=== PATIENT | female | born 1930 | race African-American/Black ===

== ENCOUNTER → 2018-01-16 | Day surgery (SDC) | payer MEDICARE, MEDICAID ==
[~2018-01-16] MED LIST: LIDOCAINE HCL/EPINEPHRINE 1%-EPI 1:100,000 20 ML VIAL ONE; SODIUM BICARBONATE 4% (2.4MEQ) 5ML VIAL IV ONE
== END | disposition home or self-care (01) ==
LOC: RAD 10:39
PROVIDERS: ATTEND Specialist
DX: C50.912 Malignant neoplasm of unspecified site of left female breast (principal); K21.9 Gastro-esophageal reflux disease without esophagitis; J44.9 Chronic obstructive pulmonary disease, unspecified; E78.5 Hyperlipidemia, unspecified; I10 Essential (primary) hypertension; R55 Syncope and collapse; Z85.41 Personal history of malignant neoplasm of cervix uteri; Z88.2 Allergy status to sulfonamides
CPT/HCPCS: 19083; 88305; J3490

== ENCOUNTER 2019-06-26 16:49 | Inpatient (IN) | payer MEDICARE, OTHER ==
[~2019-06-26] VITALS: Ht 157.5 cm; Wt 66.2 kg
[~2019-06-26 16:49] MED LIST changes: +AMLO10TA80 PO; +ASCO-339 PO; +ASPI-986 PO; +AZOPT BOTHEYE; +CHOL400C8 PO; -LIDOCAINE HCL/EPINEPHRINE 1%-EPI 1:100,000 20 ML VIAL ONE; +LOSA50TA41 PO; +METH50TA5 PO; +MULT-645 PO; -SODIUM BICARBONATE 4% (2.4MEQ) 5ML VIAL IV ONE; +TRAV2.5D BOTHEYE
[2019-06-26] MEDS ORDERED: SODIUM CHLORIDE 0.9% 1,000 ML IV ONE (17:07)
[2019-06-26 17:41] LABS: BASOPHILS % 0.9 % (0.0-2.0); EOSINOPHILS % 1.1 % (0.0-5.0); HEMATOCRIT. 33.4 % (36.0-48.0); HEMOGLOBIN. 10.6 g/dL (12.0-16.0); MEAN CORPUSCULAR HEMOGLOBIN 26.7 pg (28.0-32.0); MEAN CORPUSCULAR VOLUME 84.3 fL (81.0-99.0); MEAN PLATELET VOLUME 7.7 fl (7.4-10.4); MONOCYTES % 10.8 % (2.0-8.0); NEUTROPHILS % 75.2 % (40.0-76.0); PLATELET 226 x1000/uL (130-400); RED BLOOD CELL COUNT 3.96 mill/uL (4.2-5.4); RED CELL DISTRIBUTION WIDTH 19.4 % (11.6-14.6)
[2019-06-26 17:45] LABS: CHLORIDE 107 mEq/L (98-107)
[2019-06-26 17:51] LABS: INR 1.1; PARTIAL THROMBOPLASTIN TIME 29.4 sec (23.4-31.0); PROTHROMBIN TIME 11.4 sec (9.6-11.0)
[2019-06-26] MEDS ORDERED: CEFTRIAXONE 1 G PREMIX 50 ML IV ONE (19:00)
[2019-06-26] MEDS ORDERED: ASPIRIN 81MG TABLET PO ONE (19:00)
[2019-06-26 20:02] LABS: CLARITY URINE CLOUDY (CLEAR); COLOR URINE YELLOW (YELLOW); KETONES URINE NEGATIVE (NEGATIVE); LEUKOCYTE ESTERASE URINE NEGATIVE (NEGATIVE); NITRITE URINE NEGATIVE (NEGATIVE); OCCULT BLOOD URINE 1+ (NEGATIVE); PROTEIN URINE TRACE (NEGATIVE); SPECIFIC GRAVITY URINE 1.013 (1.005-1.030); UROBILINOGEN URINE 0.2 E.U./dL (0.2-1.0)
[2019-06-26] MEDS ORDERED: DOCUSATE SODIUM 100MG CAPSULE PO PRN (20:30)
[2019-06-26] MEDS ORDERED: ONDANSETRON HCL 4MG/2ML INJ IV PRN (20:30)
[2019-06-26 23:30] VITALS: BP 178/87
[2019-06-27] MEDS: SODIUM CHLORIDE 0.9% 1,000 ML IV SCH ×2 (00:18→10:24)
[2019-06-27] MEDS: CLONIDINE 0.1MG TABLET PO PRN (00:18)
[2019-06-27] MEDS ORDERED: LEVO500T89 PO (00:48)
[2019-06-27] MEDS ORDERED: MECL-159 PO (00:48)
[2019-06-27] MEDS ORDERED: BIMA2.5D4 LEFTEYE (00:48)
[2019-06-27] MEDS ORDERED: BRIM10DR2 LEFTEYE (00:48)
[2019-06-27 04:00] VITALS: BP 140/75
[2019-06-27] MEDS: ACETAMINOPHEN 325MG TABLET PO PRN ×2 (04:35→10:24)
[2019-06-27 07:05] LABS: BASOPHILS % 0.6 % (0.0-2.0); EOSINOPHILS % 0.4 % (0.0-5.0); HEMATOCRIT. 31.5 % (36.0-48.0); HEMOGLOBIN. 10.1 g/dL (12.0-16.0); LYMPHOCYTES % 13.9 % (20.0-50.0); MEAN CORPUSCULAR HEMOGLOBIN 26.8 pg (28.0-32.0); MEAN CORPUSCULAR VOLUME 83.7 fL (81.0-99.0); MEAN PLATELET VOLUME 8.3 fl (7.4-10.4); MONOCYTES % 13.7 % (2.0-8.0); NEUTROPHILS % 71.4 % (40.0-76.0); PLATELET 188 x1000/uL (130-400); RED BLOOD CELL COUNT 3.76 mill/uL (4.2-5.4); RED CELL DISTRIBUTION WIDTH 19.7 % (11.6-14.6)
[2019-06-27 07:25] LABS: CHLORIDE 109 mEq/L (98-107)
[2019-06-27 08:00] VITALS: BP 146/75
[2019-06-27] MEDS ORDERED: LORAZEPAM 2MG/ML CPJ IV PRN (10:45)
[2019-06-27 12:00] VITALS: BP 139/64
[2019-06-27] MEDS: AMLODIPINE 10MG TABLET PO SCH (12:42)
[2019-06-27] MEDS: MEGESTROL ACETATE 400 MG/10 ML UDC PO SCH (12:42)
[2019-06-27 16:00] VITALS: BP 123/59
[2019-06-27 20:00] VITALS: BP 132/76
[2019-06-27] MEDS: ENOXAPARIN 30MG/0.3ML SYR SUBCUT SCH (21:13)
[2019-06-27] MEDS: LUMIGAN 0.01% LEFTEYE SCH (21:13)
[2019-06-27] MEDS: COMBIGAN LEFTEYE SCH (21:13)
[2019-06-28] VITALS (7 sets, daily range): BP systolic 134–166; BP diastolic 62–73
[2019-06-28] MEDS: SODIUM CHLORIDE 0.9% 1,000 ML IV SCH ×2 (01:58→14:38)
[2019-06-28] MEDS: ACETAMINOPHEN 325MG TABLET PO PRN (07:33)
[2019-06-28] MEDS ORDERED: ENOXAPARIN 30MG/0.3ML SYR SUBCUT SCH (09:00)
[2019-06-28] MEDS: MEGESTROL ACETATE 400 MG/10 ML UDC PO SCH (09:15)
[2019-06-28] MEDS: AMLODIPINE 10MG TABLET PO SCH (09:16)
[2019-06-28] MEDS: COMBIGAN LEFTEYE SCH ×2 (09:16→20:22)
[2019-06-28] MEDS: CLONIDINE 0.1MG TABLET PO PRN (09:19)
[2019-06-28] MEDS: ENOXAPARIN 30MG/0.3ML SYR SUBCUT SCH (20:22)
[2019-06-28] MEDS: LUMIGAN 0.01% LEFTEYE SCH (20:22)
[2019-06-29] VITALS: BP 143/70
[2019-06-29 04:00] VITALS: BP 164/67
[2019-06-29] MEDS: SODIUM CHLORIDE 0.9% 1,000 ML IV SCH ×2 (04:18→19:04)
[2019-06-29 06:08] LABS: BASOPHILS % 0.9 % (0.0-2.0); EOSINOPHILS % 1.4 % (0.0-5.0); HEMATOCRIT. 29.9 % (36.0-48.0); HEMOGLOBIN. 9.7 g/dL (12.0-16.0); LYMPHOCYTES % 11.6 % (20.0-50.0); MEAN CORPUSCULAR HEMOGLOBIN 27.3 pg (28.0-32.0); MEAN CORPUSCULAR VOLUME 83.9 fL (81.0-99.0); MEAN PLATELET VOLUME 8.7 fl (7.4-10.4); NEUTROPHILS % 73.1 % (40.0-76.0); PLATELET 158 x1000/uL (130-400); RED BLOOD CELL COUNT 3.57 mill/uL (4.2-5.4); RED CELL DISTRIBUTION WIDTH 20.5 % (11.6-14.6)
[2019-06-29 08:00] VITALS: BP 136/76
[2019-06-29 08:02] LABS: CHLORIDE 115 mEq/L (98-107)
[2019-06-29] MEDS: MEGESTROL ACETATE 400 MG/10 ML UDC PO SCH (10:21)
[2019-06-29] MEDS: AMLODIPINE 10MG TABLET PO SCH (10:21)
[2019-06-29] MEDS: COMBIGAN LEFTEYE SCH ×2 (10:22→21:16)
[2019-06-29 12:00] VITALS: BP 130/60
[2019-06-29 16:00] VITALS: BP 121/60
[2019-06-29] MEDS: ACETAMINOPHEN 325MG TABLET PO PRN ×2 (16:48→19:00)
[2019-06-29 20:53] VITALS: BP 160/77
[2019-06-29] MEDS: LUMIGAN 0.01% LEFTEYE SCH (21:16)
[2019-06-29] MEDS: ENOXAPARIN 30MG/0.3ML SYR SUBCUT SCH (21:16)
[2019-06-30] VITALS: BP 151/72
[2019-06-30 03:53] VITALS: BP 159/73
[2019-06-30] MEDS: SODIUM CHLORIDE 0.9% 1,000 ML IV SCH ×2 (05:49→21:22)
[2019-06-30 08:00] VITALS: BP 166/76
[2019-06-30] MEDS: COMBIGAN LEFTEYE SCH ×2 (10:20→21:22)
[2019-06-30] MEDS: ACETAMINOPHEN 325MG TABLET PO PRN (10:20)
[2019-06-30] MEDS: MEGESTROL ACETATE 400 MG/10 ML UDC PO SCH (10:20)
[2019-06-30] MEDS: AMLODIPINE 10MG TABLET PO SCH (10:21)
[2019-06-30 12:00] VITALS: BP 129/51
[2019-06-30] MEDS ORDERED: MECLIZINE 25MG TABLET PO PRN (12:30)
[2019-06-30 16:00] VITALS: BP 129/59
[2019-06-30 20:00] VITALS: BP 135/60
[2019-06-30] MEDS: LUMIGAN 0.01% LEFTEYE SCH (21:22)
[2019-06-30] MEDS: ENOXAPARIN 30MG/0.3ML SYR SUBCUT SCH (21:22)
[2019-07-01] VITALS: BP 144/53
[2019-07-01 04:00] VITALS: BP 137/86
[2019-07-01] MEDS ORDERED: NITROGLYCERIN 50MG PREMIX 250 ML IV ONE (06:12)
[2019-07-01] MEDS ORDERED: HEPARIN 1000 UNITS/ML 10ML ONE (06:12)
[2019-07-01 08:00] VITALS: BP 157/83
[2019-07-01] MEDS: AMLODIPINE 10MG TABLET PO SCH (08:50)
[2019-07-01] MEDS: MEGESTROL ACETATE 400 MG/10 ML UDC PO SCH (08:50)
[2019-07-01] MEDS: COMBIGAN LEFTEYE SCH (08:51)
[2019-07-01] MEDS ORDERED: MEGE40TA27 MT (09:03)
[2019-07-01] MEDS: ACETAMINOPHEN 325MG TABLET PO PRN (09:11)
[2019-07-01] MEDS: SODIUM CHLORIDE 0.9% 1,000 ML IV SCH (09:40)
[2019-07-01 12:00] VITALS: BP 139/64
[2019-07-01 13:28] VITALS: BP 139/64
[2019-07-01 16:00] VITALS: BP 130/74
== END 2019-07-01 18:05 | disposition home health service (06) | DRG 682 ==
LOC: ER 17:39 → 6WST 19:22 → ENRESERV 22:27
PROVIDERS: ADMIT Hospitalist; ATTEND Hospitalist
DX: N17.9 Acute kidney failure, unspecified (principal); E43 Unspecified severe protein-calorie malnutrition; C78.00 Secondary malignant neoplasm of unspecified lung; E86.0 Dehydration; E83.52 Hypercalcemia; I11.9 Hypertensive heart disease without heart failure; R74.0 Nonspecific elevation of levels of transaminase and lactic acid dehydrogenase [LDH]; H40.9 Unspecified glaucoma; H26.9 Unspecified cataract; D63.8 Anemia in other chronic diseases classified elsewhere; Z86.73 Personal history of transient ischemic attack (TIA), and cerebral infarction without residual deficits; Z87.440 Personal history of urinary (tract) infections; Z85.3 Personal history of malignant neoplasm of breast; Z90.12 Acquired absence of left breast and nipple; Z88.2 Allergy status to sulfonamides; Z79.899 Other long term (current) drug therapy; Z68.26 Body mass index [BMI] 26.0-26.9, adult
CPT/HCPCS: 36415; 71045; 80048; 80053; 81003; 82962; 83735; 83880; 84484; 85025; 93005; 93970; 97162; 97530; 99285; J0696; J1644; J1650; J3490; J7030

== ENCOUNTER 2019-07-05 23:10 | Inpatient (IN) | payer MEDICARE, OTHER ==
[~2019-07-05] VITALS: Ht 165.1 cm; Wt 80.7 kg
[~2019-07-05 23:10] MED LIST changes: -ASCO-339 PO; -ASPI-986 PO; -AZOPT BOTHEYE; +BIMA2.5D4 LEFTEYE; +BRIM10DR2 LEFTEYE; -CHOL400C8 PO; -LOSA50TA41 PO; +MECL-159 PO; +MEGE40TA5 MT; -METH50TA5 PO; -MULT-645 PO; -TRAV2.5D BOTHEYE
[2019-07-06] MEDS ORDERED: ONDANSETRON HCL 4MG/2ML INJ IV STA (00:03)
[2019-07-06] MEDS ORDERED: MORPHINE SULFATE 4 MG/ML CPJ (NOT FOR IM USE) IV STA (00:03)
[2019-07-06] MEDS ORDERED: SODIUM CHLORIDE 0.9% 1,000 ML IV ONE (00:03)
[2019-07-06 00:34] LABS: BASOPHILS % 0.4 % (0.0-2.0); HEMATOCRIT. 36.5 % (36.0-48.0); HEMOGLOBIN. 11.2 g/dL (12.0-16.0); LYMPHOCYTES % 11.5 % (20.0-50.0); MEAN CORPUSCULAR HEMOGLOBIN 27.1 pg (28.0-32.0); MEAN CORPUSCULAR VOLUME 87.8 fL (81.0-99.0); MEAN PLATELET VOLUME 8.2 fl (7.4-10.4); MONOCYTES % 9.1 % (2.0-8.0); PLATELET 259 x1000/uL (130-400); RED BLOOD CELL COUNT 4.15 mill/uL (4.2-5.4); RED CELL DISTRIBUTION WIDTH 21.6 % (11.6-14.6)
[2019-07-06 00:39] LABS: CHLORIDE 116 mEq/L (98-107)
[2019-07-06 00:41] LABS: INR 1.1; PARTIAL THROMBOPLASTIN TIME 25.7 sec (23.4-31.0); PROTHROMBIN TIME 11.6 sec (9.6-11.0)
[2019-07-06 01:27] LABS: CLARITY URINE CLOUDY (CLEAR); COLOR URINE YELLOW (YELLOW); KETONES URINE NEGATIVE (NEGATIVE); LEUKOCYTE ESTERASE URINE 1+ (NEGATIVE); NITRITE URINE NEGATIVE (NEGATIVE); OCCULT BLOOD URINE NEGATIVE (NEGATIVE); PROTEIN URINE 2+ (NEGATIVE); SPECIFIC GRAVITY URINE 1.017 (1.005-1.030); UROBILINOGEN URINE 0.2 E.U./dL (0.2-1.0)
[2019-07-06] MEDS ORDERED: CEFTRIAXONE 1 G PREMIX 50 ML IV ONE (02:45)
[2019-07-06] MEDS ORDERED: CLONIDINE 0.1MG TABLET PO PRN (08:45)
[2019-07-06] MEDS ORDERED: DOCUSATE SODIUM 100MG CAPSULE PO PRN (08:45)
[2019-07-06] MEDS ORDERED: LORAZEPAM 0.5MG TABLET PO PRN (08:45)
[2019-07-06] MEDS ORDERED: IPRATROPIUM/ALBUTEROL 0.5-3(2.5)MG/3ML NEB HHN PRN (08:45)
[2019-07-06] MEDS ORDERED: ACETAMINOPHEN 325MG TABLET PO PRN (08:45)
[2019-07-06] MEDS ORDERED: GUAIFENESIN 200MG/10ML SUGAR FREE UDC PO PRN (08:45)
[2019-07-06 09:34] LABS: BG BASE EXCESS -9.9 mmol/L (-2.0-2.0); BG CARBOXYHEMOGLOBIN 0.3 % (0.5-1.5); BG FRACTION INSPIRED OXYGEN 32; BG HCO3 ACT 17.5 mmol/L (22.0-26.0); BG METHEMOGLOBIN 0.4 % (0.0-1.5); BG OXYHEMOGLOBIN 96.3 % (94.0-97.0); BG PCO2 44.4 mmHg (35.0-45.0); BG PH 7.213 (7.350-7.450); BG PO2 104.9 mmHg (75.0-100.0); BG SAMPLE SITE RIGHT RADIAL; BG TOTAL HEMOGLOBIN 10.8 g/dL (12.0-18.0); BG VENT MODE NASAL CANNULA
[2019-07-06] MEDS ORDERED: SODIUM BICARBONATE 8.4% 1 MEQ/ML 50ML SYR IV ONE (10:45)
[2019-07-06] MEDS ORDERED: SODIUM BICARBONATE 50 MEQ in DEXTROSE 5% WATER 1,000 ML IV SCH ×2 (11:15→11:45)
[2019-07-06 20:00] VITALS: BP 125/58
[2019-07-06 22:00] VITALS: BP 91/53
[2019-07-06 22:11] LABS: BG BASE EXCESS -7.9 mmol/L (-2.0-2.0); BG CARBOXYHEMOGLOBIN 0.2 % (0.5-1.5); BG DEOXYHEMOGLOBIN 2.4 % (0.0-5.0); BG FRACTION INSPIRED OXYGEN 32; BG HCO3 ACT 19.1 mmol/L (22.0-26.0); BG METHEMOGLOBIN 0.3 % (0.0-1.5); BG OXYGEN SATURATION 97.6 % (92.0-98.5); BG OXYHEMOGLOBIN 97.1 % (94.0-97.0); BG PCO2 44.8 mmHg (35.0-45.0); BG PH 7.247 (7.350-7.450); BG PO2 108.8 mmHg (75.0-100.0); BG SAMPLE SITE RIGHT RADIAL; BG TOTAL HEMOGLOBIN 11.2 g/dL (12.0-18.0); BG VENT MODE NASAL CANNULA
[2019-07-06 23:00] VITALS: BP 98/45
[2019-07-07] VITALS (13 sets, daily range): BP systolic 93–123; BP diastolic 44–113
[2019-07-07] MEDS ORDERED: CEFTRIAXONE 1 G PREMIX 50 ML IV SCH (01:00)
[2019-07-07 01:30] LABS: FERRITIN 1547 ng/mL (10-291)
[2019-07-07 02:04] LABS: VITAMIN B12 SERUM > 2000.0 pg/mL (211-911)
[2019-07-07] MEDS: SODIUM BICARBONATE 50 MEQ in DEXTROSE 5% WATER 1,000 ML IV SCH ×2 (04:59→22:30)
[2019-07-07 06:34] LABS: BASOPHILS % 0.3 % (0.0-2.0); EOSINOPHILS % 0.4 % (0.0-5.0); HEMATOCRIT. 29.4 % (36.0-48.0); HEMOGLOBIN. 9.2 g/dL (12.0-16.0); LYMPHOCYTES % 11.5 % (20.0-50.0); MEAN CORPUSCULAR HEMOGLOBIN 27.2 pg (28.0-32.0); MEAN CORPUSCULAR VOLUME 87.2 fL (81.0-99.0); MEAN PLATELET VOLUME 8.1 fl (7.4-10.4); MONOCYTES % 8.1 % (2.0-8.0); NEUTROPHILS % 79.7 % (40.0-76.0); PLATELET 188 x1000/uL (130-400); RED BLOOD CELL COUNT 3.37 mill/uL (4.2-5.4); RED CELL DISTRIBUTION WIDTH 22.2 % (11.6-14.6)
[2019-07-07] MEDS ORDERED: FOLIC ACID 1MG TABLET PO SCH (09:00)
[2019-07-07] MEDS: AMLODIPINE 10MG TABLET PO SCH ×2 (09:00→10:38)
[2019-07-07] MEDS: FOLIC ACID 1MG TABLET PO SCH (10:30)
[2019-07-07] MEDS ORDERED: LABETALOL 5MG/ML SYR 20 MG/4 ML SYRINGE IV PRN (10:30)
[2019-07-07] MEDS ORDERED: HYDROMORPHONE HCL/PF 2MG/ML CPJ IV PRN (10:30)
[2019-07-07] MEDS: HEPARIN 5000 UNITS/ML VIAL SUBCUT SCH ×2 (10:38→21:05)
[2019-07-07] MEDS: HYDROCODONE/ACETAMINOPHEN 5/325MG TABLET PO PRN (10:39)
[2019-07-07 11:41] LABS: PLATELET ESTIMATE NORMAL
[2019-07-08] VITALS (12 sets, daily range): BP systolic 100–136; BP diastolic 48–64
[2019-07-08] MEDS: SODIUM BICARBONATE 50 MEQ in DEXTROSE 5% WATER 1,000 ML IV SCH (03:24)
[2019-07-08 05:07] LABS: PHOSPHORUS 5.6 mg/dL (2.5-4.9)
[2019-07-08 05:42] LABS: HEPATITIS B SURFACE ANTIGEN NEGATIVE
[2019-07-08 06:12] LABS: HEPATITIS A AB IGM NEGATIVE (NEGATIVE)
[2019-07-08] MEDS: HEPARIN 5000 UNITS/ML VIAL SUBCUT SCH ×4 (09:00→21:42)
[2019-07-08] MEDS: FOLIC ACID 1MG TABLET PO SCH ×2 (09:00→13:11)
[2019-07-08] MEDS: AMLODIPINE 10MG TABLET PO SCH ×2 (09:00→12:56)
[2019-07-08] MEDS ORDERED: IPRATROPIUM/ALBUTEROL 0.5-3(2.5)MG/3ML NEB HHN PRN (11:00)
[2019-07-08] MEDS ORDERED: PIPERACILLIN/TAZOBACTAM 2.25 G in DEXTROSE 5% WATER 50 ML IV SCH (11:00)
[2019-07-08 12:07] LABS: BASOPHILS % 0.7 % (0.0-2.0); EOSINOPHILS % 1.7 % (0.0-5.0); HEMATOCRIT. 32.6 % (36.0-48.0); LYMPHOCYTES % 10.8 % (20.0-50.0); MEAN CORPUSCULAR HEMOGLOBIN 27.1 pg (28.0-32.0); MEAN CORPUSCULAR VOLUME 88.3 fL (81.0-99.0); MEAN PLATELET VOLUME 8.5 fl (7.4-10.4); MONOCYTES % 8.2 % (2.0-8.0); NEUTROPHILS % 78.6 % (40.0-76.0); PLATELET 137 x1000/uL (130-400); RED BLOOD CELL COUNT 3.69 mill/uL (4.2-5.4); RED CELL DISTRIBUTION WIDTH 22.1 % (11.6-14.6)
[2019-07-08] MEDS: PIPERACILLIN/TAZOBACTAM 2.25 G in DEXTROSE 5% WATER 50 ML IV SCH ×2 (13:33→21:41)
[2019-07-08 15:07] LABS: CREATINE KINASE 379 IU/L (26-192)
[2019-07-08] MEDS: HYDROCODONE/ACETAMINOPHEN 5/325MG TABLET PO PRN (19:52)
[2019-07-09] VITALS (12 sets, daily range): BP systolic 113–134; BP diastolic 31–73
[2019-07-09 06:43] LABS: BASOPHILS % 0.9 % (0.0-2.0); EOSINOPHILS % 1.5 % (0.0-5.0); HEMATOCRIT. 31.6 % (36.0-48.0); LYMPHOCYTES % 10.3 % (20.0-50.0); MEAN CORPUSCULAR HEMOGLOBIN 27.4 pg (28.0-32.0); MEAN PLATELET VOLUME 8.5 fl (7.4-10.4); MONOCYTES % 8.3 % (2.0-8.0); PLATELET 141 x1000/uL (130-400); RED BLOOD CELL COUNT 3.63 mill/uL (4.2-5.4); RED CELL DISTRIBUTION WIDTH 22.1 % (11.6-14.6)
[2019-07-09] MEDS: PIPERACILLIN/TAZOBACTAM 2.25 G in DEXTROSE 5% WATER 50 ML IV SCH ×3 (06:53→21:53)
[2019-07-09] MEDS: HEPARIN 5000 UNITS/ML VIAL SUBCUT SCH ×2 (08:50→21:53)
[2019-07-09] MEDS: AMLODIPINE 10MG TABLET PO SCH (08:50)
[2019-07-09] MEDS: FOLIC ACID 1MG TABLET PO SCH (08:51)
[2019-07-09] MEDS ORDERED: MEGESTROL ACETATE 400 MG/10 ML UDC PO SCH (10:45)
[2019-07-09 11:02] LABS: BG BASE EXCESS -3.1 mmol/L (-2.0-2.0); BG CARBOXYHEMOGLOBIN 0.2 % (0.5-1.5); BG DEOXYHEMOGLOBIN 3.3 % (0.0-5.0); BG FRACTION INSPIRED OXYGEN 24; BG HCO3 ACT 21.7 mmol/L (22.0-26.0); BG METHEMOGLOBIN 0.2 % (0.0-1.5); BG OXYGEN SATURATION 96.7 % (92.0-98.5); BG OXYHEMOGLOBIN 96.3 % (94.0-97.0); BG PCO2 37.8 mmHg (35.0-45.0); BG PH 7.377 (7.350-7.450); BG PO2 89.3 mmHg (75.0-100.0); BG SAMPLE SITE RIGHT RADIAL; BG TOTAL HEMOGLOBIN 10.5 g/dL (12.0-18.0); BG VENT MODE NASAL CANNULA
[2019-07-09] MEDS: SODIUM BICARBONATE 50 MEQ in DEXTROSE 5% WATER 1,000 ML IV SCH (11:08)
[2019-07-09] MEDS: MEGESTROL ACETATE 40MG TABLET PO SCH (11:42)
[2019-07-09] MEDS ORDERED: BISACODYL 10MG SUPP PR NR (15:15)
[2019-07-09] MEDS: LACTULOSE 20G/30ML UDC PO SCH ×2 (16:15→21:53)
[2019-07-10] VITALS (15 sets, daily range): BP systolic 114–154; BP diastolic 58–83
[2019-07-10] MEDS: PIPERACILLIN/TAZOBACTAM 2.25 G in DEXTROSE 5% WATER 50 ML IV SCH ×3 (05:58→20:35)
[2019-07-10] MEDS: SODIUM BICARBONATE 50 MEQ in DEXTROSE 5% WATER 1,000 ML IV SCH ×2 (05:58→20:38)
[2019-07-10 07:26] LABS: BASOPHILS % 0.7 % (0.0-2.0); EOSINOPHILS % 0.4 % (0.0-5.0); HEMOGLOBIN. 11.8 g/dL (12.0-16.0); LYMPHOCYTES % 7.2 % (20.0-50.0); MEAN CORPUSCULAR VOLUME 87.3 fL (81.0-99.0); MEAN PLATELET VOLUME 8.2 fl (7.4-10.4); MONOCYTES % 9.5 % (2.0-8.0); NEUTROPHILS % 82.2 % (40.0-76.0); PLATELET 187 x1000/uL (130-400); RED BLOOD CELL COUNT 4.35 mill/uL (4.2-5.4); RED CELL DISTRIBUTION WIDTH 22.4 % (11.6-14.6)
[2019-07-10] MEDS: MEGESTROL ACETATE 40MG TABLET PO SCH ×3 (09:00→12:31)
[2019-07-10] MEDS: LACTULOSE 20G/30ML UDC PO SCH ×2 (09:00→09:44)
[2019-07-10] MEDS: FOLIC ACID 1MG TABLET PO SCH ×3 (09:00→12:30)
[2019-07-10] MEDS: HEPARIN 5000 UNITS/ML VIAL SUBCUT SCH ×2 (09:00→20:35)
[2019-07-10] MEDS: AMLODIPINE 10MG TABLET PO SCH ×3 (09:00→12:30)
[2019-07-10] MEDS: ONDANSETRON HCL 4MG/2ML INJ IV PRN ×2 (12:03→20:35)
[2019-07-10] MEDS: PANTOPRAZOLE SODIUM 40 MG/VIAL IV SCH (14:35)
[2019-07-11] VITALS (12 sets, daily range): BP systolic 105–154; BP diastolic 43–79
[2019-07-11] MEDS: ONDANSETRON HCL 4MG/2ML INJ IV PRN (04:34)
[2019-07-11] MEDS: PIPERACILLIN/TAZOBACTAM 2.25 G in DEXTROSE 5% WATER 50 ML IV SCH ×3 (05:54→21:53)
[2019-07-11 06:49] LABS: HEMATOCRIT. 37.6 % (36.0-48.0); HEMOGLOBIN. 11.9 g/dL (12.0-16.0); MEAN CORPUSCULAR HEMOGLOBIN 27.5 pg (28.0-32.0); MEAN CORPUSCULAR VOLUME 86.5 fL (81.0-99.0); MEAN PLATELET VOLUME 8.6 fl (7.4-10.4); PLATELET 191 x1000/uL (130-400); RED BLOOD CELL COUNT 4.35 mill/uL (4.2-5.4); RED CELL DISTRIBUTION WIDTH 22.5 % (11.6-14.6)
[2019-07-11] MEDS: PANTOPRAZOLE SODIUM 40 MG/VIAL IV SCH (09:06)
[2019-07-11] MEDS: HEPARIN 5000 UNITS/ML VIAL SUBCUT SCH (09:06)
[2019-07-11 22:24] LABS: NUCLEATED RED BLOOD CELLS 5 /100 WBC; PLATELET ESTIMATE NORMAL
[2019-07-11] MEDS: SODIUM BICARBONATE 50 MEQ in DEXTROSE 5% WATER 1,000 ML IV SCH (23:37)
[2019-07-12] VITALS (8 sets, daily range): BP systolic 101–173; BP diastolic 56–83
[2019-07-12] MEDS: PIPERACILLIN/TAZOBACTAM 2.25 G in DEXTROSE 5% WATER 50 ML IV SCH ×3 (05:09→22:11)
[2019-07-12 07:56] LABS: HEMATOCRIT. 35.1 % (36.0-48.0); HEMOGLOBIN. 11.1 g/dL (12.0-16.0); MEAN CORPUSCULAR VOLUME 85.3 fL (81.0-99.0); MEAN PLATELET VOLUME 8.3 fl (7.4-10.4); PLATELET 205 x1000/uL (130-400); RED BLOOD CELL COUNT 4.11 mill/uL (4.2-5.4); RED CELL DISTRIBUTION WIDTH 22.1 % (11.6-14.6)
[2019-07-12] MEDS: SODIUM BICARBONATE 50 MEQ in DEXTROSE 5% WATER 1,000 ML IV SCH (08:28)
[2019-07-12] MEDS: AMLODIPINE 10MG TABLET PO SCH (09:06)
[2019-07-12] MEDS: PANTOPRAZOLE SODIUM 40 MG/VIAL IV SCH (09:06)
[2019-07-12] MEDS: MEGESTROL ACETATE 40MG TABLET PO SCH (09:06)
[2019-07-12] MEDS: FOLIC ACID 1MG TABLET PO SCH (09:06)
[2019-07-12] MEDS: ONDANSETRON HCL 4MG/2ML INJ IV PRN (09:16)
[2019-07-12] MEDS: CITRIC ACID/SODIUM CITRATE SOLN 30ML UDC PO SCH ×3 (13:00→16:42)
[2019-07-12] MEDS ORDERED: LORAZEPAM 1MG TABLET PO PRN (15:30)
[2019-07-12] MEDS ORDERED: LORAZEPAM 2MG/ML CPJ IV PRN (16:00)
[2019-07-12] MEDS: SODIUM CHLORIDE 0.9% 1,000 ML IV SCH (21:07)
[2019-07-13] VITALS: BP 132/47
[2019-07-13 04:00] VITALS: BP 149/63
[2019-07-13 04:10] LABS: PLATELET ESTIMATE NORMAL
[2019-07-13] MEDS: PIPERACILLIN/TAZOBACTAM 2.25 G in DEXTROSE 5% WATER 50 ML IV SCH ×3 (07:08→22:49)
[2019-07-13 07:47] LABS: BASOPHILS % 0.6 % (0.0-2.0); EOSINOPHILS % 0.6 % (0.0-5.0); HEMATOCRIT. 32.1 % (36.0-48.0); HEMOGLOBIN. 10.1 g/dL (12.0-16.0); LYMPHOCYTES % 8.1 % (20.0-50.0); MEAN CORPUSCULAR HEMOGLOBIN 27.1 pg (28.0-32.0); MEAN CORPUSCULAR VOLUME 85.9 fL (81.0-99.0); MEAN PLATELET VOLUME 8.5 fl (7.4-10.4); MONOCYTES % 13.4 % (2.0-8.0); NEUTROPHILS % 77.3 % (40.0-76.0); PLATELET 221 x1000/uL (130-400); RED BLOOD CELL COUNT 3.73 mill/uL (4.2-5.4); RED CELL DISTRIBUTION WIDTH 21.8 % (11.6-14.6)
[2019-07-13 08:00] VITALS: BP 143/72
[2019-07-13] MEDS: FOLIC ACID 1MG TABLET PO SCH (09:41)
[2019-07-13] MEDS: PANTOPRAZOLE SODIUM 40 MG/VIAL IV SCH (09:41)
[2019-07-13] MEDS: CITRIC ACID/SODIUM CITRATE SOLN 30ML UDC PO SCH ×3 (09:41→17:00)
[2019-07-13] MEDS: MEGESTROL ACETATE 40MG TABLET PO SCH (09:41)
[2019-07-13] MEDS: AMLODIPINE 10MG TABLET PO SCH (09:42)
[2019-07-13] MEDS: SODIUM CHLORIDE 0.9% 1,000 ML IV SCH (10:46)
[2019-07-13 12:00] VITALS: BP 130/59
[2019-07-13 16:00] VITALS: BP 133/69
[2019-07-13 20:00] VITALS: BP 123/62
[2019-07-14] VITALS (8 sets, daily range): BP systolic 110–149; BP diastolic 51–87
[2019-07-14] MEDS: SODIUM CHLORIDE 0.9% 1,000 ML IV SCH ×3 (00:22→21:09)
[2019-07-14] MEDS: PIPERACILLIN/TAZOBACTAM 2.25 G in DEXTROSE 5% WATER 50 ML IV SCH ×3 (06:20→21:08)
[2019-07-14] MEDS: PANTOPRAZOLE SODIUM 40 MG/VIAL IV SCH (09:28)
[2019-07-14] MEDS: AMLODIPINE 10MG TABLET PO SCH (09:31)
[2019-07-14] MEDS: FOLIC ACID 1MG TABLET PO SCH (09:32)
[2019-07-14] MEDS: MEGESTROL ACETATE 20MG TABLET PO SCH (09:32)
[2019-07-14] MEDS: CITRIC ACID/SODIUM CITRATE SOLN 30ML UDC PO SCH ×3 (09:39→17:20)
[2019-07-14] MEDS: POLYETHYLENE GLYCOL 3350 (17GM) 1 DOSE PACK PO SCH (09:40)
[2019-07-14 18:17] LABS: HEMATOCRIT. 30.3 % (36.0-48.0); HEMOGLOBIN. 9.5 g/dL (12.0-16.0); MEAN CORPUSCULAR HEMOGLOBIN 26.9 pg (28.0-32.0); MEAN CORPUSCULAR VOLUME 86.2 fL (81.0-99.0); MEAN PLATELET VOLUME 8.3 fl (7.4-10.4); PLATELET 230 x1000/uL (130-400); RED BLOOD CELL COUNT 3.52 mill/uL (4.2-5.4); RED CELL DISTRIBUTION WIDTH 22.2 % (11.6-14.6)
[2019-07-14 18:46] LABS: PLATELET ESTIMATE NORMAL
[2019-07-15] MEDS: SODIUM CHLORIDE 0.9% 1,000 ML IV SCH (00:09)
[2019-07-15] MEDS: PIPERACILLIN/TAZOBACTAM 2.25 G in DEXTROSE 5% WATER 50 ML IV SCH ×3 (06:00→21:25)
[2019-07-15 06:42] LABS: HEMATOCRIT. 29.7 % (36.0-48.0); HEMOGLOBIN. 9.7 g/dL (12.0-16.0); MEAN CORPUSCULAR HEMOGLOBIN 27.7 pg (28.0-32.0); MEAN CORPUSCULAR VOLUME 85.3 fL (81.0-99.0); MEAN PLATELET VOLUME 8.4 fl (7.4-10.4); PLATELET 218 x1000/uL (130-400); RED BLOOD CELL COUNT 3.49 mill/uL (4.2-5.4); RED CELL DISTRIBUTION WIDTH 22.3 % (11.6-14.6)
[2019-07-15 08:00] VITALS: BP 129/60
[2019-07-15] MEDS: AMLODIPINE 10MG TABLET PO SCH (08:52)
[2019-07-15] MEDS: MEGESTROL ACETATE 20MG TABLET PO SCH (08:55)
[2019-07-15] MEDS: FOLIC ACID 1MG TABLET PO SCH (08:56)
[2019-07-15] MEDS: PANTOPRAZOLE SODIUM 40 MG/VIAL IV SCH (08:58)
[2019-07-15] MEDS: POLYETHYLENE GLYCOL 3350 (17GM) 1 DOSE PACK PO SCH (09:00)
[2019-07-15] MEDS: CITRIC ACID/SODIUM CITRATE SOLN 30ML UDC PO SCH ×3 (09:00→17:00)
[2019-07-15 10:00] VITALS: BP 129/57
[2019-07-15 10:14] LABS: PLATELET ESTIMATE NORMAL
[2019-07-15] MEDS ORDERED: POTASSIUM CHLORIDE 20MEQ/PACKET PO NR (11:00)
[2019-07-15 16:00] VITALS: BP 120/53
[2019-07-15 20:00] VITALS: BP 117/55
[2019-07-16] VITALS: BP 126/63
[2019-07-16 04:00] VITALS: BP 134/62
[2019-07-16 08:00] VITALS: BP 127/62
[2019-07-16] MEDS: AMLODIPINE 10MG TABLET PO SCH (08:51)
[2019-07-16] MEDS: MEGESTROL ACETATE 20MG TABLET PO SCH (08:53)
[2019-07-16] MEDS: FOLIC ACID 1MG TABLET PO SCH (08:53)
[2019-07-16] MEDS: POLYETHYLENE GLYCOL 3350 (17GM) 1 DOSE PACK PO SCH (08:53)
[2019-07-16] MEDS: PANTOPRAZOLE SODIUM 40 MG/VIAL IV SCH (08:53)
[2019-07-16] MEDS: CITRIC ACID/SODIUM CITRATE SOLN 30ML UDC PO SCH (08:53)
[2019-07-16 10:32] VITALS: BP 127/72
== END 2019-07-16 11:20 | disposition hospice, home (50) | DRG 91 ==
LOC: EDUNIT# 23:10 → ER 23:10 → 6WST 07-06 03:07 → EDBEDREQTM 07-06 03:12 → EDBEDREQ 07-06 03:12 → ENRESERV 07-06 17:35 → 5EST 07-06 20:55 → 6EST 07-15 11:04
PROVIDERS: ADMIT Internal Medicine; ATTEND Internal Medicine
DX: G92 Toxic encephalopathy (principal); L89.153 Pressure ulcer of sacral region, stage 3; J96.00 Acute respiratory failure, unspecified whether with hypoxia or hypercapnia; G82.50 Quadriplegia, unspecified; K57.91 Diverticulosis of intestine, part unspecified, without perforation or abscess with bleeding; N18.6 End stage renal disease; N17.9 Acute kidney failure, unspecified; E46 Unspecified protein-calorie malnutrition; N39.0 Urinary tract infection, site not specified; C78.7 Secondary malignant neoplasm of liver and intrahepatic bile duct; E87.2 Acidosis; E87.0 Hyperosmolality and hypernatremia; I12.0 Hypertensive chronic kidney disease with stage 5 chronic kidney disease or end stage renal disease; I31.3 Pericardial effusion (noninflammatory); C78.02 Secondary malignant neoplasm of left lung; C79.51 Secondary malignant neoplasm of bone; C78.01 Secondary malignant neoplasm of right lung; J90 Pleural effusion, not elsewhere classified; G62.81 Critical illness polyneuropathy; E78.5 Hyperlipidemia, unspecified; R10.9 Unspecified abdominal pain; D72.821 Monocytosis (symptomatic); E83.52 Hypercalcemia; E86.1 Hypovolemia; E78.1 Pure hyperglyceridemia; E53.8 Deficiency of other specified B group vitamins; L89.326 Pressure-induced deep tissue damage of left buttock; L89.316 Pressure-induced deep tissue damage of right buttock; R13.10 Dysphagia, unspecified; H57.02 Anisocoria; Z53.29 Procedure and treatment not carried out because of patient's decision for other reasons; D50.9 Iron deficiency anemia, unspecified; N28.1 Cyst of kidney, acquired; Z86.73 Personal history of transient ischemic attack (TIA), and cerebral infarction without residual deficits; Z82.49 Family history of ischemic heart disease and other diseases of the circulatory system; Z90.12 Acquired absence of left breast and nipple; Z85.3 Personal history of malignant neoplasm of breast; Z83.3 Family history of diabetes mellitus; Z90.710 Acquired absence of both cervix and uterus; Z78.1 Physical restraint status; Z88.2 Allergy status to sulfonamides; Z79.899 Other long term (current) drug therapy
CPT/HCPCS: 36415; 36600; 71045; 74018; 74176; 76770; 80048; 80053; 80061; 80076; 81003; 82105; 82140; 82270; 82375; 82550; 82607; 82728; 82746; 82805; 82962; 83036; 83540; 83550; 83605; 83735; 83880; 84100; 84134; 84484; 85025; 86705; 86709; 86803; 87340; 92523; 92610; 93005; 93306; 93970; 96365; 97162; 97166; 97168; 97530; 99285; C1893; C9113; J0696; J1170; J1644; J2060; J2270; J2405; J2543; J3490; J7030; J7060; J7070; A4315